=== PATIENT | female | born 1950 | race Two or more races ===

== ENCOUNTER 2016-10-22 07:29 | Emergency (ER) | payer MEDICARE, SELFPAY ==
[~2016-10-22] VITALS: Ht 168.9 cm; Wt 81.6 kg
[2016-10-22] MEDS ORDERED: GLUCOPHAGE500 MG PO (10:18)
[2016-10-22] MEDS ORDERED: VITAMIN D31000 UNI1 PO (10:19)
== END 2016-10-22 08:44 | disposition short-term general hospital (02) ==
LOC: ER 07:29
DX: M54.16 Radiculopathy, lumbar region (principal); F32.9 Major depressive disorder, single episode, unspecified; E11.9 Type 2 diabetes mellitus without complications; E78.5 Hyperlipidemia, unspecified; E55.9 Vitamin D deficiency, unspecified; Z79.84 Long term (current) use of oral hypoglycemic drugs; Z88.0 Allergy status to penicillin; Z79.899 Other long term (current) drug therapy

== ENCOUNTER 2016-11-18 08:00 | Day surgery (SDC) | payer MEDICARE, SELFPAY ==
[~2016-11-18] VITALS: Ht 167.6 cm; Wt 73.5 kg
[~2016-11-18 08:00] MED LIST: GLUCOPHAGE500 MG PO; VITAMIN D31000 UNI1 PO
== END 2016-11-18 09:53 | disposition short-term general hospital (02) ==
LOC: SURGOP 08:00
PROC: 0DJD8ZZ Inspection of Lower Intestinal Tract, Via Natural or Artificial Opening Endoscopic (ICD-10-PCS; principal; 2016-11-18)
DX: K57.30 Diverticulosis of large intestine without perforation or abscess without bleeding (principal); E11.9 Type 2 diabetes mellitus without complications; E78.5 Hyperlipidemia, unspecified; E66.9 Obesity, unspecified; Z68.26 Body mass index [BMI] 26.0-26.9, adult; Z88.0 Allergy status to penicillin; Z79.84 Long term (current) use of oral hypoglycemic drugs; Z90.710 Acquired absence of both cervix and uterus; Z90.722 Acquired absence of ovaries, bilateral; Z98.890 Other specified postprocedural states

== ENCOUNTER → 2016-12-24 | Outpatient (CLI) | payer MEDICARE, SELFPAY | END | disposition short-term general hospital (02) | LOC: CLPAIN 10:21 | DX: M47.26 Other spondylosis with radiculopathy, lumbar region (principal); M46.1 Sacroiliitis, not elsewhere classified ==